=== PATIENT | female | born 1990 | race Caucasian/White ===

== ENCOUNTER 2019-01-17 02:50 | Emergency (ER) | payer OTHER ==
[~2019-01-17] VITALS: Ht 157.5 cm; Wt 46.7 kg
[2019-01-17 02:50] VITALS: BP 124/79
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
[2019-01-17] MEDS ORDERED: NACL 0.9% 1,000 ML IV ONE (03:50)
[2019-01-17] MEDS ORDERED: METOCLOPRAMIDE 10 MG/2 ML INJ VIAL IVP ONE (04:05)
--- NOTE | 2019-01-17 04:30 | NUR ---
[facility] WILL NO LONGER BE AT BEDSIDE PER THEIR WIRE FENCE BUILDER. ARTHUR MADE AWARE.
[2019-01-17 04:44] LABS: BASOPHILS % (AUTO) 0.4 % (0.0-2.0); EOSINOPHILS # (AUTO) 0.1 K/uL (0-0.4); EOSINOPHILS % (AUTO) 0.7 % (0.0-4.0); HEMATOCRIT 38.7 % (36-48); HEMOGLOBIN 12.3 g/dL (12.0-16.0); LYMPHOCYTES # (AUTO) 2.5 K/uL (2.5-16.5); LYMPHOCYTES % (AUTO) 27.7 % (20.5-51.1); MEAN CORPUSCULAR HEMOGLOBIN 27 pg (27-31); MEAN CORPUSCULAR HGB CONC 32 g/dL (33-37); MEAN CORPUSCULAR VOLUME 85.9 fL (80-94); MONOCYTES # (AUTO) 0.5 K/uL (0.8-1.0); MONOCYTES % (AUTO) 5.4 % (1.7-9.3); NEUTROPHILS # (AUTO) 5.8 K/uL (1.8-7.7); NEUTROPHILS % (AUTO) 65.8 % (42.2-75.2); PLATELET COUNT (AUTO) 316 K/uL (140-450); RED CELL DISTRIBUTION WIDTH 16.3 % (11.6-13.7); WHITE BLOOD COUNT (AUTO) 8.9 K/uL (4.8-10.8)
[2019-01-17 04:51] LABS: ALBUMIN 4.3 g/dL (3.4-5.0); ANION GAP 18.3 (8-16); CARBON DIOXIDE 23.3 mmol/L (21-32); CREATININE 0.4 mg/dL (0.6-1.3); POTASSIUM 3.6 mmol/L (3.5-5.1); TOTAL BILIRUBIN 0.2 mg/dL (0.0-1.0)
--- NOTE | 2019-01-17 05:08 | NUR ---
PT AMBULATED TO RESTROOM
[2019-01-17 05:13] VITALS: BP 97/55
--- NOTE | 2019-01-17 05:20 | NUR ---
PT REFUSED ULTRASOUND AND TREATMENT
--- NOTE | 2019-01-17 05:25 | NUR ---
KIMBERLID MADE AWARE PT IS REFUSING TREATMENT
--- NOTE | 2019-01-17 06:51 | NUR ---
Patient does not wish to proceed with medical care recommended by . Patient given information related to possible complications, up to and including , which could occur as a result of leaving hospital at this time. Patient verbalizes understanding of risks involved leaving against medical advice. Patient has signed AMA form.
[2019-01-17 10:10] LABS: APPEARANCE,URINE CLOUDY (CLEAR); BILIRUBIN,URINE NEGATIVE (NEGATIVE); BLOOD, URINE TRACE-I (NEGATIVE); COLOR,URINE YELLOW (YELLOW); LEUKOCYTE ESTERASE ,URINE TRACE (NEGATIVE); NITRITE, URINE POSITIVE (NEGATIVE); PH,URINE 5.5 (5.0-9.0); UGLUCOSE NEGATIVE (NEGATIVE)
[2019-01-17 10:29] LABS: YEAST,URINE Moderate /HPF (None Seen)
== END 2019-01-17 06:50 | disposition left against medical advice (07) ==
LOC: MED 02:50
DX: O26.891 Other specified pregnancy related conditions, first trimester (principal); R10.9 Unspecified abdominal pain; Z3A.01 Less than 8 weeks gestation of pregnancy
CPT/HCPCS: 36415; 80053; 81001; 81025; 83690; 84702; 85025; 86901; 87086; 87186; 96374; 99283; J2765; J7030